=== PATIENT | female | born 1965 | race American Indian/Alaskan Native ===

== ENCOUNTER 2017-01-27 10:37 | Emergency (ER) | payer SELFPAY ==
--- NOTE | 2017-01-27 11:30 | XRay Report ---
ROUTINE CHEST, TWO VIEWS: HISTORY: Cough. The trachea, heart, mediastinal contour, lung dominguez and bony thorax are unremarkable. IMPRESSION: Unremarkable chest x-ray.
--- NOTE | 2017-01-27 13:27 | Emergency Department Report ---
HPI - General Chief Complaint: Upper Respiratory Infection Time Seen by Provider: 01/27/17 13:23 - HPI HPI: Chief complaint: Cough 2 months HPI: Patient is 51-year-old female with hypertension, palsy, depression who has not been taking her medications and states that she's been having a cough and postnasal drip for several months. Patient states sometimes she coughs so hard it makes her vomit. Nonproductive cough. No fever no history of smoking. Mode of arrival: [EMS] Source: [Patient] Began: Several months Duration: Intermittent Context: No history of allergic rhinitis. Positive post nasal drainage which is yellow and green. Quality: No complaints of pain Severity: 0 out of 10 Improved with: Nothing Worsened with: Nothing Associated signs and symptoms: See above ED Past Medical Hx - Past Medical History Previous Medical History?: Yes Hx Hypertension: Yes Hx Psychiatric Treatment: Yes (DEPRESSION) Additional medical history: CP/ TENDITITIS RECOVERING DRUG USER-- NO DRUGS FOR 16 YEARS - Surgical History Past Surgical History?: No - Social History Smoking Status: Never Smoker Substance Use Type: None - Medications Home Medications: Home Medications Medication Instructions Recorded Confirmed Last Taken Type Acetaminophen [Tylenol Arthritis] 650 mg PO Q4H PRN 01/27/17 01/27/17 Unknown History Amoxicillin [Trimox CAP] 500 mg PO Q8H #30 capsule 01/27/17 Unknown Rx Hydrochlorothiazide [HCTZ] 25 mg PO QDAY #30 tablet 01/27/17 Unknown Rx PARoxetine [Paxil] 10 mg PO QAM #14 tablet 01/27/17 Unknown Rx ED Review of Systems ROS: Stated complaint: DIFFICULTY BREATHING Other details as noted in HPI ROS Constitutional: No fever ENT: No uri symptoms Cardiovascular: No chest pain Respiratory: No sob GI: No nausea vomiting or diarrhea : No dysuria frequency or urgency, Skin: No rash Neuro: Walks with a cane secondary to her cerebral palsy Psych: depression David/lymph: No edema Physical Exam - Physical Exam Vital Signs: Vital Signs 01/27/17 01/27/17 10:41 12:26 Temperature 98.6 F Pulse Rate 102 H 86 Respiratory 18 18 Rate Blood Pressure 212/119 Blood Pressure 160/88 [Left] O2 Sat by Pulse 100 100 Oximetry Physical Exam: GENERAL: The patient is well-developed well-nourished . HEENT: Normocephalic. Atraumatic. Extraocular motions are intact. Patient has moist mucous membranes. Nasal congestion with purulent nasal drainage. NECK: Supple. No meningitic signs are noted. There is no adenopathy noted. CHEST/LUNGS: Clear to auscultation. There is no respiratory distress noted. HEART/CARDIOVASCULAR: Regular. There is no tachycardia. There is no gallop rub or murmur. ABDOMEN: Abdomen is soft, nontender. Patient has normal bowel sounds. There is no abdominal distention. SKIN: There is no rash. There is no edema. There is no diaphoresis. NEURO: The patient is awake, alert, and oriented. The patient is cooperative. The patient has normal speech. MUSCULOSKELETAL: Patient with extremely poor foot care. Bilaterally extremely thickened and long nails. Some as long as 2 inches. Patient states she normally goes to the parenting skills instructor but hasn't had a chance. ED Course Vital Signs 01/27/17 01/27/17 10:41 12:26 Temperature 98.6 F Pulse Rate 102 H 86 Respiratory 18 18 Rate Blood Pressure 212/119 Blood Pressure 160/88 [Left] O2 Sat by Pulse 100 100 Oximetry ED Medical Decision Making - Radiology Data Radiology results: report reviewed Critical care attestation.: If time is entered above; I have spent that time in minutes in the direct care of this critically ill patient, excluding procedure time. ED Disposition Clinical Impression: Sinusitis, chest x-ray shows no acute process. Disposition: DISCHARGED TO HOME OR SELFCARE Is pt being admited?: No Does the pt Need Aspirin: No Condition: Stable Instructions: Sinusitis (ED) Prescriptions: Amoxicillin [Trimox CAP] 500 mg PO Q8H #30 capsule Hydrochlorothiazide [HCTZ] 25 mg PO QDAY #30 tablet PARoxetine [Paxil] 10 mg PO QAM #14 tablet Referrals: ESTHER DOLAN MD [Staff Physician] - 3-5 Days (Dr. Dolan is an internal medicine physician.) [facility] [Provider Group] - 3-5 Days ([facility] is a clinic you can follow-up with.) PERICO ACEVEDO DPM [Staff Physician] - 3-5 Days (Dr. Acevedo is a parenting skills instructor) [facility] [Outside] - 7-10 days (Follow up with [place] [facility] for your depression and to get a refill on your Paxil.) Time of Disposition: 13:25
[2017-01-27 14:09] VITALS: BP 130/84
== END 2017-01-27 13:55 | disposition home or self-care (01) ==
LOC: ED 10:37
DX: J32.9 Chronic sinusitis, unspecified (principal); I10 Essential (primary) hypertension
CPT/HCPCS: 71020

== ENCOUNTER 2017-02-08 11:04 | Emergency (ER) | payer SELFPAY ==
[2017-02-08] MEDS: BENADRYL PO ONE (11:56)
--- NOTE | 2017-02-08 12:07 | Emergency Department Report ---
HPI - HPI HPI: 51-year-old -[place] female with a past medical history cerebral palsy and an allergy to lisinopril comes in today for swelling of her upper lip 1 day. She reports that she has been on Paxil for several years and had just started back 1 week ago. She does reports standing a hotel that is not very clean and not sure if she has gotten bitten by a bug. She denies any nausea no vomiting she denies any fever or chills she denies any wheezing or cough. <[address] - Last Filed: 02/08/17 15:26> <CARIDAD PITTS - Last Filed: 02/08/17 16:10> - General Chief Complaint: Pain General Time Seen by Provider: 02/08/17 11:35 ED Past Medical Hx - Past Medical History Previous Medical History?: Yes Hx Hypertension: Yes Hx Psychiatric Treatment: Yes (DEPRESSION) Additional medical history: CP/ TENDITITIS RECOVERING DRUG USER-- NO DRUGS FOR 16 YEARS - Surgical History Past Surgical History?: Yes Additional Surgical History: Release of tendons in abd. area, Satya leg surgery and tendon surgery - Social History Smoking Status: Current Every Day Smoker Substance Use Type: Alcohol, Prescribed <[address] - Last Filed: 02/08/17 15:26> <CARIDAD PITTS - Last Filed: 02/08/17 16:10> - Medications Home Medications: Home Medications Medication Instructions Recorded Confirmed Last Taken Type Acetaminophen [Tylenol Arthritis] 650 mg PO Q4H PRN 01/27/17 01/27/17 Unknown History Amoxicillin [Trimox CAP] 500 mg PO Q8H #30 capsule 01/27/17 Unknown Rx Hydrochlorothiazide [HCTZ] 25 mg PO QDAY #30 tablet 01/27/17 Unknown Rx PARoxetine [Paxil] 10 mg PO QAM #14 tablet 01/27/17 Unknown Rx Azithromycin [Zithromax] 250 mg PO QDAY #6 tablet 02/08/17 Unknown Rx Prednisone [predniSONE 5 mg (6-Day 5 mg PO .TAPER #1 tab.ds.pk 02/08/17 Unknown Rx Pack, 21 Tabs)] ED Review of Systems ROS: Stated complaint: SWOLLEN TOP LIP Other details as noted in HPI <[address] - Last Filed: 02/08/17 15:26> ROS: Stated complaint: SWOLLEN TOP LIP Other details as noted in HPI <CARIDAD PITST - Last Filed: 02/08/17 16:10> Physical Exam - Physical Exam Vital Signs: Vital Signs 02/08/17 11:20 Temperature 99 F Pulse Rate 118 H Respiratory 20 Rate Blood Pressure 154/106 O2 Sat by Pulse 99 Oximetry Physical Exam: GENERAL: Alert and oriented x3, no apparent distress, Normal Gait, atraumatic. HEAD: Head is normocephalic and a-traumatic. EYES: Extra ocular muscles are intact. Pupils are equal, round, and reactive to light and accommodation. EARS: symetrical, atraumatic, non tender, ear canal clear and moderate cerumen, tympanic membrance non inflamed. gross auditory nml bilaterally. NOSE: Nose symetrical, Nontender,Nares appeared normal. MOUTH:Mouth is well hydrated and without lesions. Tonsils nonerythematous or swollen, Uvula midline, Tongue not elevated. Mucous membranes are moist. Posterior pharynx clear, no exudate or lesions. Patent airways. Upper lip edematous, nonerythematous nontender to palpate no open areas NECK: Supple. Non edematous, No carotid bruits. No lymphadenopathy or thyromegaly. LUNGS: Symetrical with respiration, No wheezing, no rales or crackles, CTAB. HEART: S1, S2 present, tachycardic rate and rhythm without murmur, no rubs, no gallops. EXTREMITIES/MUSCULOSKELETAL: No cyanosis, clubbing, rash, lesions or edema. NEUROLOGIC: No focal Deficit, Cranial nerves II through XII are grossly intact. No loss of sensation, No facial droop, PSYCHIATRIC: Mood is congruent with affect, denies suicidal or homicidal ideations. SKIN: Warm and dry, No lesions, No ulceration or induration present <[address] - Last Filed: 02/08/17 15:26> - Physical Exam Vital Signs: Vital Signs 02/08/17 02/08/17 11:20 15:48 Temperature 99 F Pulse Rate 118 H 97 H Respiratory 20 18 Rate Blood Pressure 154/106 Blood Pressure 125/78 [Left] O2 Sat by Pulse 99 96 Oximetry <CARIDAD PITTS - Last Filed: 02/08/17 16:10> ED Course Vital Signs 02/08/17 11:20 Temperature 99 F Pulse Rate 118 H Respiratory 20 Rate Blood Pressure 154/106 O2 Sat by Pulse 99 Oximetry <[address] - Last Filed: 02/08/17 15:26> Vital Signs 02/08/17 02/08/17 11:20 15:48 Temperature 99 F Pulse Rate 118 H 97 H Respiratory 20 18 Rate Blood Pressure 154/106 Blood Pressure 125/78 [Left] O2 Sat by Pulse 99 96 Oximetry - Reevaluation(s) Reevaluation #1: 02/08/17 Patient seen by myself and noted that I had seen her last week and put her on amoxicillin for sinus infection. Patient has history of allergic reaction to lisinopril but is not on any blood pressure medicines at this time. Patient complains of itching. I feel like the patient has an allergic reaction to penicillin and should be switched to another antibiotic such as Zithromax. <CARIDAD PITTS - Last Filed: 02/08/17 16:10> ED Medical Decision Making - Medical Decision Making Patient's been evaluated by this provider in fast track. Was given Benadryl 50 mg and Solu-Medrol 40 mg IM. Patient be reevaluated. He has been evaluated by this provider as well as Dr. Moran. Will discuss with patient that she needs to return to the emergency room if swelling gets worse her tongue swells up she starts having shortness of breathing. Discussed with patient to start the Zithromax pack tomorrow. As well as start the Medrol Dosepak today when she gets home. Patient verbalized understanding <[address] - Last Filed: 02/08/17 15:26> Critical care attestation.: If time is entered above; I have spent that time in minutes in the direct care of this critically ill patient, excluding procedure time. <[address] - Last Filed: 02/08/17 15:26> Critical care attestation.: If time is entered above; I have spent that time in minutes in the direct care of this critically ill patient, excluding procedure time. <CARIDAD PITTS - Last Filed: 02/08/17 16:10> ED Disposition Is pt being admited?: No Does the pt Need Aspirin: No <[id number]' M - Last Filed: 02/08/17 15:26> <CARIDAD PITTS - Last Filed: 02/08/17 16:10> Disposition: DISCHARGED TO HOME OR SELFCARE Condition: Stable Instructions: Antibiotic Medication Allergy (ED) Additional Instructions: Please return to the emergency room if your tongue starts to swell shortness of breathing or lips swollen and will not improve. Please do not start the Zithromax until tomorrow. Please start the Medrol Dosepak/prednisone today. Please discontinue amoxicillin as prescribed for the other day. Prescriptions: Azithromycin [Zithromax] 250 mg PO QDAY #6 tablet Prednisone [predniSONE 5 mg (6-Day Pack, 21 Tabs)] 5 mg PO .TAPER #1 tab.ds.pk Referrals: PRIMARY CARE,MD [Primary Care Provider] - 3-5 Days [facility] [Outside] - 3-5 Days Forms: Accompanied Note
[2017-02-08] MEDS: PEPCID PO ONE (12:35)
[2017-02-08 15:49] VITALS: BP 125/78
== END 2017-02-08 15:49 | disposition home or self-care (01) ==
LOC: ED 11:04
DX: R22.0 Localized swelling, mass and lump, head (principal); I10 Essential (primary) hypertension; F32.9 Major depressive disorder, single episode, unspecified; G80.9 Cerebral palsy, unspecified; Z88.1 Allergy status to other antibiotic agents; Z88.8 Allergy status to other drugs, medicaments and biological substances
CPT/HCPCS: 96372; 99282; J2920